=== PATIENT | female | born 1935 | race Caucasian/White ===

== ENCOUNTER 2016-11-12 12:04 | Emergency (ER) | payer MEDICARE, OTHER ==
[~2016-11-12] VITALS: Ht 172.7 cm; Wt 80.0 kg
[2016-11-12] MEDS ORDERED: AMLO-512 PO (13:02)
[2016-11-12] MEDS ORDERED: ASPI81TA2 PO (13:02)
[2016-11-12] MEDS ORDERED: METO50 PO (13:02)
[2016-11-12] MEDS ORDERED: LOSA50TA37 PO (13:02)
[2016-11-12] MEDS ORDERED: ACETAMINOPHEN 325 MG TABLET PO ONE (15:30)
[2016-11-12] MEDS ORDERED: IBUPROFEN 600 MG TABLET PO ONE (15:30)
[2016-11-12 16:23] VITALS: BP 151/76
== END 2016-11-12 16:27 | disposition home or self-care (01) ==
LOC: EMS 12:07
DX: S92.352A Displaced fracture of fifth metatarsal bone, left foot, initial encounter for closed fracture (principal); I10 Essential (primary) hypertension; X58.XXXA Exposure to other specified factors, initial encounter; Y93.01 Activity, walking, marching and hiking; Y92.89 Other specified places as the place of occurrence of the external cause; Y99.8 Other external cause status
CPT/HCPCS: 99284

== ENCOUNTER 2021-12-13 10:47 | Emergency (ER) | payer MEDICARE, OTHER ==
[~2021-12-13] VITALS: Ht 162.6 cm; Wt 84.5 kg
[~2021-12-13 10:47] MED LIST: AMLO-258 PO; ASPI81TA39 PO; LOSA-382 PO; METO50 PO
[2021-12-13] MEDS ORDERED: AmLODIPine BESYLATE 5 MG TABLET PO ONE ×2 (12:00→14:15)
[2021-12-13 12:29] LABS: BASOPHILS % (AUTO) 0.5 % (0.0-2.0); EOSINOPHILS % (AUTO) 2.7 % (1.0-6.0); HEMATOCRIT 42.8 % (36-46); HEMOGLOBIN 14.2 g/dL (12.0-16.0); LYMPHOCYTES # (AUTO) 1.4 K/uL (1.0-4.8); MEAN CORPUSCULAR HEMOGLOBIN 28.4 pg (26.0-34.0); MEAN CORPUSCULAR HGB CONC 33.3 G/dL (31.0-37.0); MEAN CORPUSCULAR VOLUME 85 fL (80-100); MONOCYTES # (AUTO) 0.6 K/uL (0.1-1.0); MONOCYTES % (AUTO) 8.9 % (2.0-9.0); NEUTROPHILS % (AUTO) 64.9 % (40.0-70.0); PLATELET COUNT (AUTO) 149 K/uL (150-450); RED BLOOD CELL COUNT(AUTO) 5.01 MIL/uL (4.00-5.20); RED CELL DISTRIBUTION WIDTH 14.1 % (11.5-14.5)
[2021-12-13 12:45] LABS: CALCIUM, TOTAL 9.3 mg/dL (8.8-10.5); CREATININE 0.94 mg/dL (0.60-1.30); POTASSIUM 3.6 mmol/L (3.5-5.1)
[2021-12-13 12:58] LABS: THYROID STIMULATING HORMONE 1.06 uIU/mL (0.36-3.74)
[2021-12-13] MEDS ORDERED: HydrALAZINE HCL 20 MG/ML VIAL IVP ONE (13:15)
[2021-12-13] MEDS ORDERED: LOSARTAN POTASSIUM 50 MG TABLET PO ONE (13:45)
[2021-12-13 14:36] VITALS: BP 212/77
== END 2021-12-13 14:55 | disposition home or self-care (01) ==
LOC: EMS 10:49
DX: I10 Essential (primary) hypertension (principal); R00.1 Bradycardia, unspecified; Z79.899 Other long term (current) drug therapy
CPT/HCPCS: 80048; 84443; 85025; 93005; 99284